=== PATIENT | male | born 1970 | race Caucasian/White ===

== ENCOUNTER 2016-05-18 01:10 | Emergency (ER) | payer SELFPAY ==
[~2016-05-18 01:10] MED LIST: BACTRIM DS1 TAB PO; BENTYL20 MG PO; COLACE100 MG PO; CYCLOBENZAPRINE10 M1 PO; EXCEDRIN MIGRA1 EAC3 PO; FLEXERIL10 MG PO; GAVISCON ES CH1 EACH PO; IBUPROFEN M200 M1 PO; IBUPROFEN800 MG; KEFLEX500 M1 PO; KEFLEX500 M4 PO; KEFLEX500 MG PO; MEDROL4 MG/DOSE- PO; NORCO 5-325 TA1 EACH PO; NORCO 5/325 TAB1 TAB PO; PERCOCET 5-3251 EACH PO; PRILOSEC OTC20 MG PO; PRILOSEC20 M1 PO; RELAFEN750 MG PO; prilosec PO
[2016-05-18 02:50] LABS: C-REACTIVE PROTEIN <0.3 mg/dl (0-0.9)
== END 2016-05-18 02:37 ==
LOC: EDMED 01:10
PROVIDERS: Registered Nurse
DX: R51 Headache (principal); R11.0 Nausea
CPT/HCPCS: J1200; J1885; J2765; J7030